=== PATIENT | female | born 1995 | race African-American/Black ===

== ENCOUNTER 2017-11-14 19:18 | Emergency (ER) | payer MEDICAID ==
[2017-11-14 19:26] VITALS: BP 130/68
--- NOTE | 2017-11-14 20:09 | ER Document Report ---
ED Medical Screen (RME) - General Chief Complaint: Vaginal Pain Stated Complaint: VAGINAL PAIN Time Seen by Provider: 11/14/17 20:07 Mode of Arrival: Ambulatory Information source: Patient Notes: Patient presents complaining of lower pelvic cramping that started today. Patient additionally reports vaginal discomfort. Patient denies any urinary symptoms. Patient reports vaginal discharge. Patient reports positive home test with last menstrual period in September. Patient has not had any ultrasound to confirm her . Patient is with history of previous . I have greeted and performed a rapid initial assessment of this patient. A comprehensive ED assessment and evaluation of the patient, analysis of test results and completion of the medical decision making process will be conducted by additional ED providers. - Related Data Allergies/Adverse Reactions: No Known Allergies Allergy (Unverified 11/14/17 19:19) Physical Exam - Vital signs Vitals: Temp Pulse Resp BP Pulse Ox 99.2 F 108 H 20 130/68 H 96 11/14/17 19:25 11/14/17 19:25 11/14/17 19:25 11/14/17 19:25 11/14/17 19:25 - Abdominal Tenderness: Tender - Lower pelvic Course - Vital Signs Vital signs: Temp Pulse Resp BP Pulse Ox 99.2 F 108 H 20 130/68 H 96 11/14/17 19:25 11/14/17 19:25 11/14/17 19:25 11/14/17 19:25 11/14/17 19:25
== END 2017-11-14 22:21 | disposition left against medical advice (07) ==
LOC: ER 19:18
DX: R10.2 Pelvic and perineal pain (principal); N89.8 Other specified noninflammatory disorders of vagina
CPT/HCPCS: 99281

== ENCOUNTER 2018-01-23 22:01 | Emergency (ER) | payer MEDICAID ==
--- NOTE | 2018-01-23 23:42 | ER Document Report ---
ED GI/ - General Chief Complaint: Lower Abdominal Pain Stated Complaint: LOWER ABOMINAL PAIN Time Seen by Provider: 01/23/18 23:40 Mode of Arrival: Ambulatory Information source: Patient Notes: History of complain-22 years old female presents today with suprapubic abdominal pain for the last 24 hours. Face associated with nausea no vomiting. Denies any dysuria frequency urgency. Denies any fever chills or other constitutional symptoms. Denies any diarrhea or constipation. REVIEW OF SYSTEMS: CONSTITUTIONAL : Denies fever, chills, or sweats. Denies recent illness. EENT: Denies eye, ear, throat, or mouth pain or symptoms. Denies nasal or sinus congestion or discharge. Denies throat, tongue, or mouth swelling or difficulty swallowing. CARDIOVASCULAR: Denies chest pain. Denies palpitations or racing or irregular heart beat. Denies ankle edema. RESPIRATORY: Denies cough, cold, or chest congestion. Denies shortness of breath, difficulty breathing, or wheezing. GASTROINTESTINAL: Denies abdominal pain or distention. Denies nausea, vomiting , or diarrhea. Denies blood in vomitus, stools, or per rectum. Denies black, tarry stools. Denies constipation. GENITOURINARY: Denies difficulty urinating, painful urination, burning, frequency, blood in urine, or discharge. FEMALE GENITOURINARY: Denies vaginal bleeding, heavy or abnormal periods, irregular periods. Denies vaginal discharge or odor. MUSCULOSKELETAL: Denies back or neck pain or stiffness. Denies joint pain or swelling. SKIN: Denies rash, lesions or sores. HEMATOLOGIC : Denies easy bruising or bleeding. LYMPHATIC: Denies swollen, enlarged glands. NEUROLOGICAL: Denies confusion or altered mental status. Denies passing out or loss of consciousness. Denies dizziness or lightheadedness. Denies headache. Denies weakness or paralysis or loss of use of either side. Denies problems with gait or speech. Denies sensory loss, numbness, or tingling. Denies seizures. PSYCHIATRIC: Denies anxiety or stress. Denies depression, suicidal ideation, or homicidal ideation. ALL OTHER SYSTEMS REVIEWED AND NEGATIVE. PHYSICAL EXAMINATION: GENERAL: Well-appearing, well-nourished and in no acute distress. Morbidly obese HEAD: Atraumatic, normocephalic. EYES: Pupils equal round and reactive to light, extraocular movements intact, conjunctiva are normal. ENT: Nares patent, oropharynx clear without exudates. Moist mucous membranes. NECK: Normal range of motion, supple without lymphadenopathy LUNGS: Breath sounds clear to auscultation bilaterally and equal. No wheezes rales or rhonchi. HEART: Regular rate and rhythm without murmurs ABDOMEN: Soft, nontender, nondistended abdomen. No guarding, no rebound. No masses appreciated. Female : deferred Musculoskeletal: Normal range of motion, no pitting or edema. No cyanosis. NEUROLOGICAL: Cranial nerves grossly intact. Normal speech, normal gait. Normal sensory, motor exams PSYCH: Normal mood, normal affect. SKIN: Warm, Dry, normal turgor, no rashes or lesions noted. Dictation was performed using 3Touch voice recognition software TRAVEL OUTSIDE OF THE [place] IN LAST 30 DAYS: No - HPI Onset: Just prior to arrival Timing/Duration: Gradual Quality of pain: Achy Severity at maximum: Mild Severity in ED: Mild Pain Level: 2 Location: Suprapubic Vaginal bleeding (Compared to normal period): denies: None, Spotting, Harpsichord Maker, Similar, Heavier, Severe, Bright red, Dark brown, Passing clots, Passing tissue Menstrual period history: denies: Abnormal, Irregular, Missed, , S/P menopausal, Post-menopausal Associated symptoms: denies: None, Blood in emesis, Blood in stool, Chest pain, Chills, Coffee ground emesis, Constipation, Diarrhea, Dizzy, Dysuria, Fever, Hard stool, Hematuria, Hurts to breath, Inguinal mass, Lightheaded, Loss of appetite, Nausea, Odor, Painful intercourse, Radiates to back, Radiates to chest , Radiates to vagina, Radiates to shoulder, Shortness of breath, Sweaty, Syncope , Urinary hesitancy, Urinary frequency, Urinary retention, Urinary urgency, Vaginal discharge, Vomiting, Other Exacerbated by: denies: Denies, Supine, Sitting, Standing, Movement, Walking, Coughing, Deep breathing, Food, Other Relieved by: denies: Denies, Supine, Sitting, Standing, Remaining still, Antacids, Food, Other - Related Data Allergies/Adverse Reactions: No Known Allergies Allergy (Verified 01/24/18 00:04) Past Medical History - Social History Smoking Status: Never Smoker Cigarette use (# per day): No Chew tobacco use (# tins/day): No Frequency of alcohol use: Rare Drug Abuse: None Lives with: Family Family History: Reviewed & Not Pertinent - Past Medical History Cardiac Medical History: Denies: None, Hx Atrial Fibrillation, Hx Congestive Heart Failure, Hx Coronary Artery Disease, Hx DVT, Hx Heart Attack, Hx Hypercholesterolemia, Hx Hypertension, Hx Peripheral Vascular Disease, Hx Pulmonary Embolism, Hx Heart Murmur, Other Pulmonary Medical History: Denies: None, Hx Asthma, Hx Bronchitis, Hx COPD, Hx Pneumonia, Hx Intubation , Hx Respiratory Failure, Hx Sleep Apnea, Hx Tuberculosis, Other EENT Medical History: Denies: None, Eyes, Ears, Nose, Throat, Other Neurological Medical History: Denies: None, Hx Cerebrovascular Accident, Hx Migraine, Hx Seizures, Other Endocrine Medical History: Denies: None, Hx Diabetes Mellitus Type 1, Hx Diabetes Mellitus Type 2, Hx Graves' Disease, Hx Hyperthyroidism, Hx Hypothyroidism, Other Renal/ Medical History: Denies: Hx Peritoneal Dialysis Review of Systems - Review of Systems Notes: In history of complain Physical Exam - Vital signs Vitals: Temp Pulse Resp BP Pulse Ox 98.1 F 83 16 123/64 100 01/23/18 22:16 01/23/18 22:16 01/23/18 22:16 01/23/18 22:16 01/23/18 22:16 Course - Vital Signs Vital signs: Temp Pulse Resp BP Pulse Ox 98.5 F 83 12 110/61 100 01/24/18 01:47 01/24/18 01:47 01/24/18 01:47 01/24/18 01:47 01/24/18 01:47 - Laboratory Result Diagrams: 01/23/18 23:45 01/23/18 23:45 Laboratory results interpreted by me: 01/23/18 01/23/18 01/23/18 23:45 23:45 23:55 Hgb 11.0 L Hct 33.6 L MCV 78 L MCH 25.3 L RDW 15.7 H Creatinine 0.50 L Total Bilirubin < 0.1 L Total Protein 6.2 L Beta HCG, Quant 38313.00 H Urine Urobilinogen 2.0 H Ur Leukocyte Esterase LARGE H - Diagnostic Test Radiology reviewed: Reports reviewed - Ultrasound reported by radiologist as 16 week . Like . Discharge - Discharge Clinical Impression: Suprapubic pain, acute Qualifiers: Weeks of gestation: 16 weeks Qualified Code(s): Z3A.16 - 16 weeks gestation of UTI (urinary tract infection) Qualifiers: Urinary tract infection type: acute cystitis Condition: Fair Disposition: HOME, SELF-CARE Instructions: Abdominal Pain ([facility]), Urinary Tract Infection ([facility]) Prescriptions: Nitrofurantoin Monohyd/M-Cryst [Macrobid 100 mg Capsule] 100 mg PO BID #14 capsule Referrals: SEAN PRITCHETT MD [Primary Care Provider] - Follow up as needed
[2018-01-24 00:04] LABS: ABSOLUTE EOSINOPHILS # (AUTO) 0.1 10^3/uL (0.0-0.6); ABSOLUTE LYMPHOCYTES (AUTO) 1.8 10^3/uL (0.5-4.7); ABSOLUTE MONOCYTES (AUTO) 0.5 10^3/uL (0.1-1.4); BASOPHILS % (AUTO) 0.5 % (0-2); EOSINOPHILS % (AUTO) 1.5 % (0-6); HEMATOCRIT 33.6 % (36.0-47.0); LYMPHOCYTES % (AUTO) 21.4 % (13-45); MEAN CORPUSCULAR HEMOGLOBIN 25.3 pg (27.0-33.4); MEAN CORPUSCULAR HGB CONC 32.6 g/dL (32.0-36.0); MEAN CORPUSCULAR VOLUME 78 fl (80-97); MONOCYTES % (AUTO) 6.4 % (3-13); PLATELET COUNT 308 10^3/uL (150-450); RED BLOOD COUNT 4.33 10^6/uL (3.72-5.28); RED CELL DISTRIBUTION WIDTH 15.7 % (11.5-14.0); SEGMENTED NEUTROPHILS % (AUTO) 70.2 % (42-78); TOTAL CELLS COUNTED % (AUTO) 100 %; WHITE BLOOD COUNT 8.5 10^3/uL (4.0-10.5)
[2018-01-24 00:20] LABS: ALANINE AMINOTRANSFERASE 16 U/L (9-52); ALBUMIN 3.6 g/dL (3.5-5.0); ALKALINE PHOSPHATASE 76 U/L (38-126); ANION GAP 10 (5-19); ASPARTATE AMINO TRANSFERASE 17 U/L (14-36); BLOOD UREA NITROGEN 9 mg/dL (7-20); CALCIUM 9.8 mg/dL (8.4-10.2); CARBON DIOXIDE 25 mmol/L (22-30); CHLORIDE 105 mmol/L (98-107); GLUCOSE 88 mg/dL (75-110); LIPASE 51.5 U/L (23-300); POTASSIUM 3.9 mmol/L (3.6-5.0); SODIUM 139.5 mmol/L (137-145); TOTAL PROTEIN 6.2 g/dL (6.3-8.2)
[2018-01-24 00:21] LABS: APPEARANCE,URINE CLOUDY; BILIRUBIN,URINE NEGATIVE (NEGATIVE); COLOR,URINE YELLOW; GLUCOSE, URINE NEGATIVE (NEGATIVE); KETONES,URINE NEGATIVE (NEGATIVE); LEUKOCYTE ESTERASE,URINE LARGE (NEGATIVE); NITRITE,URINE NEGATIVE (NEGATIVE); PROTEIN,URINE NEGATIVE (NEGATIVE); URINE SPECIFIC GRAVITY 1.027
[2018-01-24 01:01] LABS: BILIRUBIN,TOTAL < 0.1 mg/dL (0.2-1.3)
--- NOTE | 2018-01-24 02:32 | RADIOLOGY REPORT (SQ) ---
EXAM DESCRIPTION: U/S OB 14+ TRNABD 1GES W/O DOP CLINICAL HISTORY: 22 years, Female, and abdominal cramps COMPARISON: None. TECHNIQUE: Transabdominal LIMITATIONS: None. FINDINGS: Living intrauterine measures 16 weeks and one day and HARSHAL 07/10/18 based on biometrics with EFW of 153g +/- 23g and cardiac activity of 140 beats per minute. There is bulging of the anterior uterine wall throughout the exam and may indicate a transient contraction or fibroid. LVP:4.2 centimeter Placenta: Posterior presentation: Breech Cervical length: 2.2 cm. Maternal ovaries are not identified. Anatomic survey: Three-vessel cord, cord insertion, bladder, stomach, and upper extremities appear unremarkable. Inadequate visualization of a four chambered heart view, kidneys, spine, intracranial structures, and lower extremities. IMPRESSION: 1. Living intrauterine measures 16 weeks and one day and HARSHAL 07/10/18. Limited anatomic survey due to early gestational age. 2.There is bulging of the anterior uterine wall throughout the exam and may indicate a transient contraction or fibroid.
[2018-01-24] MEDS ORDERED: NITROFURANTOIN MONOHYD/M-CRYST 100 MG CAPSULE PO ONE (02:53)
[2018-01-24 02:59] VITALS: BP 118/75
== END 2018-01-24 02:59 | disposition home or self-care (01) ==
LOC: ER 22:01
DX: O23.12 Infections of bladder in pregnancy, second trimester (principal); R10.30 Lower abdominal pain, unspecified; R10.2 Pelvic and perineal pain; Z3A.16 16 weeks gestation of pregnancy
CPT/HCPCS: 99284; 36415; 84702; 83690; 85025; 80053; 81001; 76805; J3490; J8499